=== PATIENT | male | born 2000 | race Caucasian/White ===

== ENCOUNTER → 2019-04-01 17:29 | Outpatient (CLI) | payer OTHER, SELFPAY ==
[2019-04-01 14:42] VITALS: BMI 23.0
== END ==
PROVIDERS: PCP Internal Medicine; Referring Provider Nurse Practitioner Family; Visit Provider Nurse Practitioner Family
DX: J02.9 Acute pharyngitis, unspecified (principal)
CPT/HCPCS: 87070